=== PATIENT | male | born 1995 | race Caucasian/White ===

== ENCOUNTER 2019-06-30 06:31 | Day surgery (SDC) | payer OTHER ==
[~2019-06-30] VITALS: Ht 170.2 cm; Wt 77.1 kg
[2019-06-30 10:44] VITALS: BP 125/78
== END 2019-06-30 11:10 | disposition home or self-care (01) | DRG 355 ==
LOC: ORM 06:31
PROVIDERS: ATTEND Surgery
PROC: 0WQF0ZZ Repair Abdominal Wall, Open Approach (ICD-10-PCS; principal; 2019-06-30)
DX: K42.0 Umbilical hernia with obstruction, without gangrene (principal)
CPT/HCPCS: J0131; J1100